=== PATIENT | female | born 1950 | race Caucasian/White ===

== ENCOUNTER 2020-12-23 06:14 | Outpatient (CLI) | payer MEDICARE, MEDICAID ==
[~2020-12-23] VITALS: Ht 162.6 cm; Wt 68.2 kg
[2020-12-23] MEDS ORDERED: LEVO100C4 PO (15:21)
[2020-12-23] MEDS ORDERED: CHOL200059 PO (15:21)
[2020-12-23] MEDS ORDERED: RT-ALBUINH IH (15:21)
[2020-12-23] MEDS ORDERED: AMLO-250 PO (15:21)
[2020-12-23] MEDS ORDERED: LISI10TA25 PO (15:21)
[2020-12-23] MEDS ORDERED: ROSU10TA28 PO (15:21)
[2020-12-23] MEDS ORDERED: METF-397 PO (15:21)
[2020-12-23] MEDS ORDERED: NF-NACL1GT PO (15:21)
[2020-12-23] MEDS ORDERED: BUPR150T14 PO (15:21)
== END 2020-12-23 15:24 | disposition home or self-care (01) ==
LOC: PREOP 06:14
PROVIDERS: ATTEND Specialist
DX: Z01.818 Encounter for other preprocedural examination (principal)

== ENCOUNTER 2020-12-27 08:51 | Day surgery (SDC) | payer MEDICARE, MEDICAID ==
[~2020-12-27] VITALS: Ht 162.6 cm; Wt 68.2 kg
[~2020-12-27 08:51] MED LIST: AMLO-250 PO; BUPR150T14 PO; CHOL200059 PO; LEVO100C4 PO; LISI10TA25 PO; METF-397 PO; NF-NACL1GT PO; ROSU10TA28 PO; RT-ALBUINH IH
--- OUTSIDE RECORDS SUMMARY | 2020-12-27 08:54 | XMS REPORT ---
Author Author [facility] Address Unknown Phone Unavailable Care Team Providers Care Contribution Solicitor Name Role Phone Migration, Doctor Unavailable Unavailable PROBLEMS Type Condition ICD9-CM Code [id number] Code Onset Dates Condition S tatus W/U Status Risk SNOMED Code Notes Problem Chronic airway obstruction, not elsewhere classified 496 Active 72877612 COPD Problem Acute pharyngitis 462 Active 20463 6003 ACUTE PHARYNGITIS Problem Acute sinusitis, unspecified 461.9 Active 20696098 SINUSITIS ACUTE Problem Counseling on substance use and abuse V65.42 Active 008903903 TOBACCO COUNSELING Problem Other and unspecified hyperlipidemia 272.4 Active 44499582 HYPERLIPIDEMIA Problem Cough 786.2 Active 98877751 COUGH Problem 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 Active 90059092 PEDICULOSIS CAPITIS Problem Elevated blood pressure reading without diagnosi s of hypertension 796.2 Active 284870306 Blood Pressure Isolated Elevated Problem Unspecified essential hypertension 401.9 Active 99555340 ESSENTIAL HYPERTENSION Problem Essential hypertension, benign 401.1 Active 3500421 ESSENTIAL HYPERTENSION BENIGN Problem Allergic rhinitis, cause unspecified 477.9 Active 54970923 ALLERGIC RHINITIS CAUSE UNSPECIFIED Problem Nondependent tobacco use disorder 305.1 Active 747118702 tobacco use ALLERGIES No Information ENCOUNTERS from 1950 to 2020-11-11 Encounter Location Date Provider Diagnosis [facility] [address] [facility] [id number] [place] [address] August, Doctor Migration IMMUNIZATIONS Vaccine Route Administration Date Status PRIVATE FLULAVAL QUAD 0.5ML (6 MO AND UP) 2019 IM Intramuscular Jan 05, 2020 Administered SOCIAL HISTORY Sex Assigned At : Social History Observation Description Sex Assigned At Unknown REASON FOR REFERRAL No Information VITAL SIGNS No information MEDICATIONS Medication SIG (Take, Route, Frequency, Duration) Notes Start Da te End Date Status Toprol XL 25 mg take 1 tablet (25 mg) by oral route once daily M [facility] Mar, Active Flonase 50 mcg/actuation 1 sprays by Nasal route 2 ti mes per day in each nostril [facility] Jun, Active Amoxicillin 500 mg 1 capsule by Oral route 3 times per day for 10 days [facility] Apr, Active Lisinopril 20 mg take 1 tablet by Oral route 1 time per day [facility] Mar, Active Doxycycline Hyclate 100 mg 1 tablet by Oral route 2 ti mes per day for 10 days with food [facility] Nov, Active Simvastatin 20 mg 1 tablet by Oral route 1 time per day [facility] Mar, Active Albuterol Sulfate 90 mcg/actuation 2 puffs by Inhalati on route every 4-6 hours as needed PRN cough or wheezing [facility] Mar, Active predniSONE 10 mg 1 Tablet by Oral route 2 tucker es per day for 5 days Take at 8 am and noon. Do not take after 3 pm [facility] Apr, Active cetirizine 10 mg 1 tablet by Oral route 1 daily [facility] Mar, 13 Active PROCEDURES No Information RESULTS No Results REASON FOR VISIT [facility] Goals Section No Information Health Concerns No Information MEDICAL EQUIPMENT No Information MENTAL STATUS No Information FUNCTIONAL STATUS No Information ASSESSMENTS No Information PLAN OF TREATMENT No Information Insurance Providers Payer Name Payer Address Payer Phone Insured Name Patient Relati onship to Insured Coverage Start Date Coverage End Date [employer] [address] [facility] [id number] [place]
[2020-12-27 09:12] VITALS: BP 105/77
[2020-12-27] MEDS: TETRACAINE 0.5% OPHTH SOLN 4 ML BTL (SINGLE DOSE ONLY) OU PRN ×4 (09:13→09:32)
[2020-12-27] MEDS ORDERED: LIDOCAINE PF 1% 2 ML VIAL IR PRN (09:15)
[2020-12-27] MEDS ORDERED: POVIDONE (BETADINE) OPHTH SOLN 5% 30 ML OP ONE (09:15)
[2020-12-27] MEDS ORDERED: TIMOLOL MALEATE 0.5% 5 ML (TIMOPTIC) BTL OU PRN (09:15)
[2020-12-27] MEDS ORDERED: MOXIFLOXACIN OPHTH SOLN 5 MG/ML 0.3 ML SYRINGE OP ONE (09:15)
[2020-12-27] MEDS: PHENYLEPHRINE 10% OPHTH (NEO-SYN) 5 ML BTL OU SCH ×3 (09:21→09:32)
[2020-12-27] MEDS: TROPICAMIDE 1% OPH SOLN (MYDRIACYL) 15 ML BTL OP SCH ×3 (09:22→09:32)
[2020-12-27] MEDS ORDERED: MIDAZOLAM 2 MG/2 ML (VERSED) VIAL ONE (09:34)
--- NOTE | 2020-12-27 09:40 | Ophthalmologist Pre-Op Note ---
Pre-Operative Progress Note H&P Reviewed The H&P was reviewed, patient examined and no changes noted. Date H&P Reviewed: Dec 27, 2020 Time H&P Reviewed: 09:40 Pre-Op Dx Cataract, Left Eye DESI MCMULLEN MD Dec 27, 2020 09:40
--- NOTE | 2020-12-27 10:04 | Ophthalmology Operative Report ---
Cataract removal/placement IOL PREOPERATIVE DIAGNOSIS: Cataract Left Eye POSTOPERATIVE DIAGNOSIS: Cataract Left Eye PROCEDURE: Cataract removal and placement of posterior chamber implant, left eye SURGEON: Contreras Mcmullen ANESTHESIA: Topical with sedation COMPLICATIONS: None ESTIMATED BLOOD LOSS: Minimal DESCRIPTION OF PROCEDURE: After proper informed consent was obtained, the patient, a 70 female, was taken to the Operating Room and the left eye was anesthetized with tetracaine. The left eye was then prepped and draped in the usual manner. A wire lid speculum was placed. A paracentesis was made at the left hand position. Preservative free lidocaine was injected into the anterior chamber followed by viscoelastic. A clear corneal incision was made in the temporal position. A capsulorrhexis was preformed and the central nuclear and cortical material were removed. The posterior capsule was polished and an Curly 21.5 AU00T0 was placed into the capsular bag. The residual viscoelastic was aspirated and balanced saline solution was injected into the anterior chamber. Moxifloxacin was injected into the anterior chamber. The wound was checked and found to be water tight. The patient tolerated the procedure well without complications. CONTRERAS MCMULLEN MD Dec 27, 2020 10:04
[2020-12-27 10:14] VITALS: BP 123/74
[2020-12-27] MEDS ORDERED: acetaZOLAMIDE ER 500 MG CAP (DIAMOX SEQUELS) PO ONE (10:30)
--- NOTE | 2020-12-27 14:03 | Anesthesia-General Post-Op ---
MAC Patient Condition Mental Status/LOC: Same as Preop Cardiovascular: Satisfactory Nausea/Vomiting: Absent Respiratory: Satisfactory Pain: Controlled Complications: Absent Post Op Complications Complications None Follow Up Care/Instructions Patient Instructions None needed. Anesthesiology Discharge Order Discharge Order Patient was seen after the procedure and she was doing well, no complaints, stable vital signs, no apparent adverse anesthesia problems. BRITTANY JAIMES DO Dec 27, 2020 14:02
== END 2020-12-27 10:15 | disposition home or self-care (01) ==
LOC: SDC 08:51
PROVIDERS: ATTEND Specialist
DX: E11.36 Type 2 diabetes mellitus with diabetic cataract (principal); H25.12 Age-related nuclear cataract, left eye; I10 Essential (primary) hypertension; E78.5 Hyperlipidemia, unspecified; F17.210 Nicotine dependence, cigarettes, uncomplicated; Z85.118 Personal history of other malignant neoplasm of bronchus and lung; Z79.84 Long term (current) use of oral hypoglycemic drugs; Z79.899 Other long term (current) drug therapy
CPT/HCPCS: 66984; 82947; V2632

== ENCOUNTER 2021-01-17 09:00 | Day surgery (SDC) | payer MEDICARE, MEDICAID ==
[~2021-01-17] VITALS: Ht 162.6 cm; Wt 68.2 kg
[2021-01-17] MEDS ORDERED: LIDOCAINE PF 1% 2 ML VIAL IR PRN (09:15)
[2021-01-17] MEDS ORDERED: TIMOLOL MALEATE 0.5% 5 ML (TIMOPTIC) BTL OU PRN (09:15)
[2021-01-17] MEDS ORDERED: POVIDONE (BETADINE) OPHTH SOLN 5% 30 ML OP ONE (09:15)
[2021-01-17] MEDS ORDERED: MOXIFLOXACIN OPHTH SOLN 5 MG/ML 0.3 ML SYRINGE OP ONE (09:15)
[2021-01-17] MEDS: TETRACAINE 0.5% OPHTH SOLN 4 ML BTL (SINGLE DOSE ONLY) OU PRN ×4 (09:17→09:33)
[2021-01-17] MEDS: PHENYLEPHRINE 10% OPHTH (NEO-SYN) 5 ML BTL OU SCH ×3 (09:23→09:33)
[2021-01-17] MEDS: TROPICAMIDE 1% OPH SOLN (MYDRIACYL) 15 ML BTL OP SCH ×3 (09:23→09:33)
[2021-01-17 09:24] VITALS: BP 131/73
[2021-01-17] MEDS ORDERED: MIDAZOLAM 2 MG/2 ML (VERSED) VIAL ONE (09:41)
--- NOTE | 2021-01-17 09:41 | Ophthalmologist Pre-Op Note ---
Pre-Operative Progress Note H&P Reviewed The H&P was reviewed, patient examined and no changes noted. Date H&P Reviewed: Jan 17, 2021 Time H&P Reviewed: 09:40 Pre-Op Dx Cataract, Right Eye DESI MCMULLEN MD Jan 17, 2021 09:41
--- NOTE | 2021-01-17 10:01 | Ophthalmology Operative Report ---
Cataract removal/placement IOL PREOPERATIVE DIAGNOSIS: Cataract Right Eye POSTOPERATIVE DIAGNOSIS: Cataract Right Eye PROCEDURE: Cataract removal and placement of posterior chamber implant, right eye SURGEON: Contreras Mcmullen ANESTHESIA: Topical with sedation COMPLICATIONS: None ESTIMATED BLOOD LOSS: Minimal DESCRIPTION OF PROCEDURE: After proper informed consent was obtained, the patient, a 70 female, was taken to the Operating Room and the right eye was anesthetized with tetracaine. The right eye was then prepped and draped in the usual manner. A wire lid speculum was placed. A paracentesis was made at the left hand position. Preservative free lidocaine was injected into the anterior chamber followed by viscoelastic. A clear corneal incision was made in the temporal position. A capsulorrhexis was preformed and the central nuclear and cortical material were removed. The posterior capsule was polished and Curly 21.0 AU00T0 IOL was placed into the capsular bag. The residual viscoelastic was aspirated and balanced saline solution was injected into the anterior chamber. Moxifloxacin was injected into the anterior chamber. The wound was checked and found to be water tight. The patient tolerated the procedure well without complications. CONTRERAS MCMULLEN MD Jan 17, 2021 10:01
[2021-01-17 10:05] VITALS: BP 113/84
--- NOTE | 2021-01-17 10:14 | Anesthesia-General Post-Op ---
MAC Patient Condition Mental Status/LOC: Same as Preop Cardiovascular: Satisfactory Nausea/Vomiting: Absent Respiratory: Satisfactory Pain: Controlled Complications: Absent Post Op Complications Complications None Follow Up Care/Instructions Patient Instructions None needed. Anesthesiology Discharge Order Discharge Order Patient is doing well, no complaints, stable vital signs, no apparent adverse anesthesia problems. No complications reported per nursing. JACOB LARSON CRNA Jan 17, 2021 10:14
[2021-01-17] MEDS ORDERED: acetaZOLAMIDE ER 500 MG CAP (DIAMOX SEQUELS) PO ONE (10:30)
== END 2021-01-17 10:05 | disposition home or self-care (01) ==
LOC: SDC 09:00
PROVIDERS: ATTEND Specialist
DX: E11.36 Type 2 diabetes mellitus with diabetic cataract (principal); H25.11 Age-related nuclear cataract, right eye; I10 Essential (primary) hypertension; F17.200 Nicotine dependence, unspecified, uncomplicated; Z79.899 Other long term (current) drug therapy; Z79.84 Long term (current) use of oral hypoglycemic drugs
CPT/HCPCS: 66984; V2632